=== PATIENT | female | born 1950 | race Native Hawaiian/Other Pacific Islander ===

== ENCOUNTER 2016-11-01 11:17 | Outpatient (CLI) | payer OTHER, MEDICARE ==
[~2016-11-01] VITALS: Ht 162.6 cm; Wt 113.9 kg
[2016-11-01 12:02] VITALS: BP 137/64; TEMP 97.5
[2016-11-01 14:55] VITALS: BP 169/71; TEMP 97.5
== END 2016-11-01 19:48 | disposition home or self-care (01) ==
LOC: INF 11:17
DX: E86.0 Dehydration (principal)
CPT/HCPCS: 96360; 96361

== ENCOUNTER 2016-11-03 07:35 | Outpatient (CLI) | payer OTHER, MEDICARE | END 2016-11-03 09:00 | disposition home or self-care (01) | LOC: CT 07:35 | DX: N20.0 Calculus of kidney (principal); N28.1 Cyst of kidney, acquired | CPT/HCPCS: 36415; 82565; 84520; 87045; 87798; 87899 ==

== ENCOUNTER 2016-12-22 14:15 | Outpatient (CLI) | payer OTHER, MEDICARE | END 2016-12-22 15:45 | disposition home or self-care (01) | LOC: MAMMO 14:15 | DX: R92.8 Other abnormal and inconclusive findings on diagnostic imaging of breast (principal) | CPT/HCPCS: G0206-TC ==

== ENCOUNTER 2017-11-09 15:27 | Outpatient (CLI) | payer OTHER, MEDICARE | END 2017-11-09 19:34 | disposition home or self-care (01) | LOC: RAD 15:27 | DX: M13.861 Other specified arthritis, right knee (principal) ==

== ENCOUNTER 2018-01-11 08:15 | Outpatient (CLI) | payer OTHER, MEDICARE | END 2018-01-11 23:59 | disposition home or self-care (01) | LOC: MAMMO 08:15 | DX: Z12.31 Encounter for screening mammogram for malignant neoplasm of breast (principal) ==

== ENCOUNTER 2019-07-09 10:33 | Outpatient (CLI) | payer OTHER, MEDICARE | END 2019-07-09 19:06 | disposition home or self-care (01) | LOC: MAMMO 10:33 | DX: Z12.31 Encounter for screening mammogram for malignant neoplasm of breast (principal) ==

== ENCOUNTER 2020-01-17 09:38 | Outpatient (CLI) | payer OTHER, MEDICARE | END 2020-01-17 21:07 | disposition home or self-care (01) | LOC: RAD 09:38 | DX: M25.561 Pain in right knee (principal); M25.562 Pain in left knee ==

== ENCOUNTER 2020-02-08 09:13 | Outpatient (CLI) | payer OTHER, MEDICARE | END 2020-02-08 23:53 | disposition home or self-care (01) | LOC: MRI 09:13 | DX: M17.12 Unilateral primary osteoarthritis, left knee (principal) ==

== ENCOUNTER 2020-08-07 14:57 | Emergency (ER) | payer OTHER, MEDICARE ==
[~2020-08-07] VITALS: Ht 165.1 cm; Wt 113.4 kg
[2020-08-07 15:10] VITALS: TEMP 98.3
[2020-08-07 16:04] LABS: PLATELET COUNT 263 K/uL (152-353)
[2020-08-07 16:23] LABS: PARTIAL THROMBOPLASTIN TIME 23.6 SECONDS (24.5-33.6)
[2020-08-07 16:26] LABS: POTASSIUM 4.5 mmol/L (3.6-5.2); SODIUM 140 mmol/L (136-145)
[2020-08-07 17:30] VITALS: BP 153/68
[2020-08-08] MEDS ORDERED: EDLUAR10 MG SL (12:21)
[2020-08-08] MEDS ORDERED: ASPIRIN ADULT325 MG PO (12:22)
[2020-08-08] MEDS ORDERED: CITA20TA2 PO (12:22)
[2020-08-08] MEDS ORDERED: MECLIZINE 2525 MG PO (12:23)
[2020-08-08] MEDS ORDERED: PANTOPRAZOLE 40MG TA PO (12:24)
[2020-08-08] MEDS ORDERED: WELLBUTRIN100 M1 PO (12:24)
[2020-08-08] MEDS ORDERED: DICL75TA4 PO (12:26)
[2020-08-08] MEDS ORDERED: SIMV40TA57 PO (12:26)
[2020-08-08] MEDS ORDERED: ANORO ELLIPTA 61 AER INH (12:27)
== END 2020-08-07 17:50 | disposition home or self-care (01) ==
LOC: ED 14:57
PROVIDERS: Hospitalist
DX: R07.89 Other chest pain (principal); R06.02 Shortness of breath; Z20.828 Contact with and (suspected) exposure to other viral communicable diseases
CPT/HCPCS: 36415; 80053; 82550; 83880; 84484; 85027; 85610; 85730; 87635; 93005; 99284; U0003

== ENCOUNTER 2020-08-07 18:01 | Observation (INO) | payer OTHER, MEDICARE ==
[~2020-08-07] VITALS: Ht 165.1 cm; Wt 108.6 kg
[2020-08-07 18:15] VITALS: BP 138/64; TEMP 98.5
[2020-08-08] VITALS: BP 139/69; TEMP 98
[2020-08-08 03:57] VITALS: BP 147/56; TEMP 98.6; Ht 165.1 cm; Wt 108.6 kg
[2020-08-08 04:00] VITALS: BP 120/51; TEMP 97.7
[2020-08-08 07:55] LABS: PLATELET COUNT 250 K/uL (152-353)
[2020-08-08 08:00] VITALS: BP 153/63; TEMP 97.9
--- NOTE | 2020-08-08 08:16 | NUR ---
PT AWAKE, A/O X 3 IN NAD, DENIES CP AT THIS TIME. STATES SHE IS READY TO GO HOME. CALL LIGHT IN EASY REACH.WILL CONTINUE TO MONITOR.
--- NOTE | 2020-08-08 11:14 | NUR ---
LABS SENT TO MD FOR REVIEW. NO NEW ORDER AT THIS TIME.
[2020-08-08 12:00] VITALS: BP 162/69; TEMP 97.6
[2020-08-08] MEDS ORDERED: EDLUAR10 MG SL (12:21)
[2020-08-08] MEDS ORDERED: ASPIRIN ADULT325 MG PO (12:22)
[2020-08-08] MEDS ORDERED: CITA20TA2 PO (12:22)
[2020-08-08] MEDS ORDERED: MECLIZINE 2525 MG PO (12:23)
[2020-08-08] MEDS ORDERED: PANTOPRAZOLE 40MG TA PO (12:24)
[2020-08-08] MEDS ORDERED: WELLBUTRIN100 M1 PO (12:24)
[2020-08-08] MEDS ORDERED: SIMV40TA57 PO (12:26)
[2020-08-08] MEDS ORDERED: DICL75TA4 PO (12:26)
[2020-08-08] MEDS ORDERED: ANORO ELLIPTA 61 AER INH (12:27)
--- NOTE | 2020-08-08 12:31 | NUR ---
UPDATED THAT PT WANTS TO BE DC. V/O GIVEN TO SET UP NUC STRESS AND PREP FOR D/C AFTER 1400. PT UPDATED. ORDERS WRITTEN BY PROGRAM REVIEW DIRECTOR AND SENT BY U/S.
--- NOTE | 2020-08-08 14:11 | NUR ---
PT IN NAD, STATES SHE IS READY TO GO HOME, DENIES CP OR SOB AT THIS TIME.
[2020-08-08 16:00] VITALS: BP 147/66; TEMP 98.3
--- NOTE | 2020-08-08 16:18 | NUR ---
PT EXPRESSES INTENT TO LEAVE AMA- MD NOTIFIED. TO GIVEN TO CALL METOPROLOL AND ASA IN TO PHARMACY.
--- NOTE | 2020-08-08 17:10 | NUR ---
METOPROLOL AND ASA CALLED TO [facility].
--- NOTE | 2020-08-08 17:25 | NUR ---
DC INSTRUCTIONS EXPLAINED TO PT WHO VERBALIZED UNDERSTANDING. PT EDUCATION SHEETS REVIEWED WITH PT WHO VERBALIZED UNDERSTANDING.
--- NOTE | 2020-08-08 17:30 | NUR ---
PT LEFT FLOOR IN NAD VIA FOR TRANSPORT HOME WITH SPOUSE. HOME MEDS RETURNED TO PT.
== END 2020-08-08 17:30 | disposition home or self-care (01) ==
LOC: ED 18:01 → MED/SURG 18:45
PROVIDERS: ADMIT Hospitalist; ATTEND Family Medicine
DX: I20.8 Other forms of angina pectoris (principal); E11.9 Type 2 diabetes mellitus without complications; I10 Essential (primary) hypertension; R07.89 Other chest pain; R06.02 Shortness of breath; Z20.828 Contact with and (suspected) exposure to other viral communicable diseases
CPT/HCPCS: 36415; 80053; 82550; 83735; 83880; 84100; 84484; 85027; 85610; 85730; 87635; 93005; 94760; 99220; 99281; 99284; G0378; J1650; U0003

== ENCOUNTER 2020-12-05 15:41 | Outpatient (CLI) | payer OTHER ==
[~2020-12-05 15:41] MED LIST: ANORO ELLIPTA 61 AER INH; ASPIRIN ADULT325 MG PO; CITA20TA2 PO; DICL75TA4 PO; EDLUAR10 MG SL; MECLIZINE 2525 MG PO; PANTOPRAZOLE 40MG TA PO; SIMV40TA57 PO; WELLBUTRIN100 M1 PO
== END 2020-12-05 22:37 | disposition home or self-care (01) ==
LOC: LABW 15:41
PROVIDERS: ATTEND Nurse Practitioner Primary Care
DX: R19.7 Diarrhea, unspecified (principal)
CPT/HCPCS: 83630; 87015; 87045; 87324; 87328; 87329; 87449; 87899

== ENCOUNTER 2021-07-13 09:50 | Outpatient (CLI) | payer OTHER | END 2021-07-13 19:12 | disposition home or self-care (01) | LOC: CT 09:50 → RAD 09:50 | PROVIDERS: ATTEND Nurse Practitioner Family | DX: J44.1 Chronic obstructive pulmonary disease with (acute) exacerbation (principal); R91.8 Other nonspecific abnormal finding of lung field | CPT/HCPCS: 36415; 82565; 84520; Q9963 ==

== ENCOUNTER 2022-08-06 10:30 | Outpatient (CLI) | payer OTHER | END 2022-08-06 19:31 | disposition home or self-care (01) | LOC: RAD 10:30 | PROVIDERS: ATTEND Nurse Practitioner Family | DX: M25.511 Pain in right shoulder (principal) ==

== ENCOUNTER 2022-09-30 17:47 | Observation (INO) | payer OTHER ==
[~2022-09-30] VITALS: Ht 162.6 cm; Wt 89.6 kg
[2022-09-30 19:24] VITALS: BP 140/67; TEMP 97.6; Ht 162.6 cm; Wt 89.6 kg
[2022-09-30 20:48] LABS: PLATELET COUNT 281 K/uL (152-353)
[2022-09-30 20:59] LABS: POTASSIUM 2.8 mmol/L (3.6-5.2)
[2022-10-01] VITALS: BP 110/58; TEMP 98.1
[2022-10-01 04:00] VITALS: BP 91/58; TEMP 98.4
[2022-10-01 04:48] LABS: POTASSIUM 2.6 mmol/L (3.6-5.2)
[2022-10-01 08:00] VITALS: BP 101/53; TEMP 98.2
[2022-10-01] MEDS ORDERED: METO25TA4 PO (10:54)
[2022-10-01] MEDS ORDERED: LISI10TA11 PO (10:55)
[2022-10-01] MEDS ORDERED: CRESTOR20 MG PO (10:56)
[2022-10-01] MEDS ORDERED: DICLOFENAC SODIUM1 % (10:56)
[2022-10-01] MEDS ORDERED: TRAMADOL HYDROC50 MG PO (10:57)
[2022-10-01] MEDS ORDERED: ZOLPIDEM PO (10:58)
[2022-10-01] MEDS ORDERED: SULFASALAZIN500 MG PO (10:59)
[2022-10-01] MEDS ORDERED: METOCLOPRAM10 MG PO (11:00)
[2022-10-01 12:00] VITALS: BP 102/53; TEMP 97.8
[2022-10-01] MEDS ORDERED: POTASSIUM CHLO20 ME2 PO (14:07)
== END 2022-10-01 14:26 | disposition home or self-care (01) ==
LOC: MED/SURG 17:47
PROVIDERS: ADMIT Internal Medicine; ATTEND Internal Medicine
DX: R07.89 Other chest pain (principal); E87.6 Hypokalemia; J44.9 Chronic obstructive pulmonary disease, unspecified; I10 Essential (primary) hypertension; C34.90 Malignant neoplasm of unspecified part of unspecified bronchus or lung; F17.210 Nicotine dependence, cigarettes, uncomplicated; Z79.69 Long term (current) use of other immunomodulators and immunosuppressants
CPT/HCPCS: 36415; 80048; 80053; 82550; 83735; 84484; 85027; 93005; 96360; 96361; 99220; 99221; G0378; G0379